=== PATIENT | male | born 1980 | race Caucasian/White ===

== ENCOUNTER 2021-07-11 23:01 | Emergency (ER) | payer OTHER ==
[2021-07-11 23:26] LABS: HEMOGLOBIN 16.6 gm/dl (14.0-17.5); RED BLOOD COUNT 5.32 M/UL (4.20-5.50)
== END 2021-07-12 03:45 | disposition home or self-care (01) ==
LOC: ER1 23:01
PROVIDERS: Physician Assistant
DX: N17.9 Acute kidney failure, unspecified (principal); E86.0 Dehydration; F17.210 Nicotine dependence, cigarettes, uncomplicated
CPT/HCPCS: 71045; 80048; 80053; 80307; 81001; 82550; 82553; 83605; 84484; 85025; 87040; 93005; 99284